=== PATIENT | male | born 1965 | race Caucasian/White ===

== ENCOUNTER 2023-11-19 17:02 | Emergency (ER) | payer OTHER, SELFPAY ==
--- NOTE | ~2023-11-19 | CT_ITS ---
EXAMINATION: CTA chest PE protocol DATE: 11/19/2023 19:27 INDICATION: Bleeding from tracheostomy. Cough. TECHNIQUE: Computed tomography angiography (CTA) of the chest was performed with 100 mL Omnipaque-350 intravenous contrast timed to evaluate the pulmonary arteries. Coronal maximum intensity projection 3D-reconstructions were created by the technologist. Automated exposure control and iterative reconst ruction technique were employed. The dose-length product was 350.91 mGy-cm. COMPARISON: None. FINDINGS: There is moderate emphysema. No pleural effusion. There is a tracheostomy tube in expected position. The heart size is normal. No pericardial effusion. There is no pulmonary embolus. There are peripelvic cysts in left kidney measuring up to 19 mm. There is mild thoracic spondylosis. IMPRESSION: 1. No pulmonary embolus. 2. Moderate emphysema. Reviewed, dictated and finalized at location E. ER CASING
--- NOTE | ~2023-11-19 | CT_ITS ---
EXAMINATION: CT soft tissue neck w con DATE: 11/19/2023 19:27 INDICATION: Bleeding from tracheostomy. Throat cancer. TECHNIQUE: Computed tomography (CT) of the neck was performed with 75 mL Omnipaque-350 intravenous co ntrast. Automated exposure control and iterative reconstruction technique were employed. The dose-lindsay gth product was 456.42 mGy-cm. COMPARISON: None FINDINGS: There is a tracheostomy tube in expected position. There is mucosal thickening and architec tural distortion of the larynx. There are no pathologically enlarged lymph nodes. There is 0% stenosi s of the proximal internal carotid arteries relative to normal distal artery lumen diameters. Right v ertebral artery is dominant. 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 There is minimal mucosal thickening in left maxillary sinus. The mastoid air cells are normal. There is moderate cervical spondylosis. IMPRESSION: 1. Mucosal thickening and architectural distortion involving the larynx, consistent with malignancy a nd/or changes of surgery and radiation therapy. 2. Total occlusion of left vertebral artery. Reviewed, dictated and finalized at location E. NUE INVESTIGATOR IMPRESSION: 1. Mucosal thickening and architectural distortion involving the larynx, consis tent with malignancy and/or changes of surgery and radiation therapy. 2. Total occlusion of left vertebral artery.
[2023-11-19 17:05] VITALS: BP 160/109; PULSE 118; RESP 16; TEMP 36.6; O2SAT 100
--- NOTE | 2023-11-19 18:41 | ED.GENADULT ---
HPI - General Adult General Chief complaint: Recheck/Abnormal Lab/Rx Stated complaint: bleeding from trach Time Seen by Provider: 11/19/23 17:22 Source: patient Mode of arrival: EMS Limitations: no limitations History of Present Illness HPI narrative: Patient is a 58-year-old male who presents to the ED via EMS with report of bleeding from his tracheostomy. Patient reports a history of throat cancer and subsequent tracheostomy. States he has chronic cough related to tracheostomy/secretions. Around 3:00 p.m. today, he began coughing izabela red blood out of his tracheostomy tube. Patient showed me a picture of this. He notes he did change his tracheostomy tube today, but states he did not have any pain or issues replacing the tracheostomy and has never had bleeding related to previous tubing changes before. Denies worsening shortness breath than usual. Denies recent illness, URI symptoms. Denies fevers. Denies chest pain. Patient is not on any anticoagulation. Denies previous hx of PE. Daughter at bedside reports patient is scheduled to undergo repeat PET scan tomorrow with Dr. Miguel Serna @ [facility] to see if throat mass has returned. Related Data Allergies Allergy/AdvReac Type Severity Reaction Status Date / Time No Known Allergies Allergy Verified 11/19/23 19:46 Review of Systems Review of Systems: CONSTITUTIONAL: Denies fever, chills, or sweats. ENT: Denies rhinorrhea, congestion, sore throat. CARDIOVASCULAR: See HPI. RESPIRATORY: See HPI. GASTROINTESTINAL: Denies abdominal pain, nausea, vomiting. All systems reviewed & are unremarkable except as noted in HPI and below [facility] Family History Family History Mother Hypertension Social History Social History Smoking status: Heavy tobacco smoker Alcohol intake: current Exam Narrative: GENERAL: Appears older than stated age, thin/frail, non-toxic, in no acute distress. HEAD: Normocephalic, atraumatic. NECK: Tracheostomy in place with stringy bloody secretions coming from stoma site. RESPIRATORY: Airway patent, respirations nonlabored. No significant focal lung sounds, LS decreased throughout. CARDIOVASCULAR: Tachycardic with regular rhythm. MUSCULOSKELETAL: Moves all extremities. No gross deformities. SKIN: Warm, dry, normal color. NEURO: A&O X3. Speech clear. PSYCHIATRIC: Appropriate mood and affect. Normal interaction. Course Vital Signs Vital signs: Vital Signs Temperature 98 F 11/19/23 17:05 Pulse Rate 118 H 11/19/23 17:05 Respiratory Rate 16 11/19/23 17:05 Blood Pressure 160/109 H 11/19/23 17:05 Pulse Oximetry 100 11/19/23 17:05 Oxygen Delivery Room Air 11/19/23 17:05 Temperature 98.0 F 11/19/23 19:50 Pulse Rate 84 11/19/23 23:00 Respiratory Rate 13 11/19/23 23:00 Blood Pressure 131/91 H 11/19/23 23:00 Pulse Oximetry 100 11/19/23 23:00 Oxygen Delivery Room Air 11/19/23 17:05 Medical Decision Making MDM Narrative Medical decision making narrative: Patient presented to ED with bleeding from tracheostomy. History of throat cancer. Patient hypertensive and tachycardic upon arrival. Afebrile. Bloody drainage noted from stoma site. Laboratory studies showing a white blood cell count of 9.5, mild anemia at 11.9, normocytic. No records to compare to. CMP fairly unremarkable. Creatinine 1.4. No records to compare to. Patient given fluids in the ED. Lactic acid resulted elevated 2.3. Again, fluids ongoing. Patient has been afebrile. No other infectious symptoms. EKG w/o ischemic changes. Trop negative. BNP WNL. CTA of chest w/o evidence for PE or other acute cardiopulmonary abnormality. Tracheostomy tube in expected position. CT soft tissue neck showing mucosal thickening and distortion of larynx, consistent with malignancy and/or changes of surgery. Patient's
[2023-11-19 19:12] LABS: Basophils Percent Auto 0.4 % (0.2-1.2); Eosinophils Percent Auto 0.3 % (0-4.4); Hematocrit 38.3 % (42.0-52.0); Hemoglobin 11.9 g/dL (14.0-18.0); Immature Granulocyte Absolute 0.03 K/mm3 (0.00-0.031); Immature Granulocyte Percent A 0.3 % (0-0.5); Lymphocytes Absolute Auto 0.84 K/mm3 (0.9-3.2); Lymphocytes Percent Auto 8.9 % (18.3-44.2); Mean Corpuscular HGB Conc 31.1 g/dl (32-36); Mean Corpuscular Hemoglobin 29.3 pg (26-34); Mean Corpuscular Volume 94.3 fl (80-100); Mean Platelet Volume 8.9 fl (7.4-10.4); Monocytes Absolute Auto 0.7 K/mm3 (0.1-0.6); Monocytes Percent Auto 7.8 % (2.6-8.5); Neutrophils Absolute Auto 7.8 K/mm3 (1.3-6.7); Neutrophils Percent Auto 82.3 % (45.5-73.1); Platelet Count Result 409 k/mm3 (150-375); Red Blood Count 4.06 M/mm3 (4.6-6.20); Red Cell Distribution Width 13.2 % (11.5-14.5); White Blood Count 9.5 K/mm3 (4.5-10.0)
[2023-11-19 19:19] LABS: Estimated CRCL calculation 39 ml/min; Estimated Glomerular Filt Rate 48
[2023-11-19 19:20] LABS: Lactic Acid Reflex 2.3 mmol/L (0.7-2.0)
--- NOTE | 2023-11-19 19:20 | ECG_ITS ---
Measurements Intervals [place] Rate: 93 P: 78 AL: 157 QRS: 68 QRSD: 94 T: 68 QT: 335 QTc: 418 Interpretive Statements SINUS RHYTHM NORMAL ECG NO PREVIOUS ECG AVAILABLE FOR COMPARISON Electronically Signed On 11-20-2023 16:18:40 [employer] UP OPERATOR VERTICAL by Rufino Lopez M.D.
[2023-11-19 19:23] LABS: Partial Thromboplastin Time 30.6 SECONDS (22.3-36.8)
[2023-11-19 19:30] LABS: Alanine Aminotransferase 16 U/L (6-50); Albumin Level 4.3 g/dL (3.5-5.1); Alkaline Phosphatase 114 U/L (38-126); Anion Gap 7 mmol/L (8-16); Aspartate Amino Transferase 23 U/L (17-59); Bilirubin,Total 0.5 mg/dL (0.2-1.3); Blood Urea Nitrogen 26 mg/dL (9-20); Calcium 10.1 mg/dL (8.4-10.2); Carbon Dioxide 30 mmol/L (22-30); Chloride 103 mmol/L (98-107); Estimated CRCL calculation 42 ml/min; Estimated Glomerular Filt Rate 52; Glucose 102 mg/dL (65-110); NT Pro B Type Natriuretic Pept 76 pg/mL (19.9-100); Potassium 4.6 mmol/L (3.4-5.0); Sodium 140 mmol/L (137-145)
[2023-11-19 19:42] LABS: Troponin I < 0.012 ng/mL (0.000-0.034)
[2023-11-19 19:44] VITALS: BP 135/96; PULSE 105; RESP 14; O2SAT 99
[2023-11-19 19:50] VITALS: BP 135/96; PULSE 93; RESP 12; TEMP 36.7; O2SAT 97
[2023-11-19] MEDS: WATER FOR IRRIGATION, STERILE 500 ML BOTTLE (19:54)
[2023-11-19] MEDS: SODIUM CHLORIDE 0.9% IV 1,000 ML 999 ML IV CONT (19:54)
[2023-11-19 20:27] VITALS: BP 138/89; PULSE 87; RESP 13; O2SAT 99
[2023-11-19 21:45] VITALS: BP 145/99; PULSE 73; RESP 9; O2SAT 99
[2023-11-19 22:09] LABS: Reflex Lactic Acid Yes or No Add Lactic
[2023-11-19 22:47] LABS: Lactic Acid 1.1 mmol/L (0.7-2.0)
[2023-11-19 23:00] VITALS: BP 131/91; PULSE 84; RESP 13; O2SAT 100
== END 2023-11-19 23:10 | disposition home or self-care (01) ==
PROVIDERS: Emergency Provider Physician Assistant
DX: J95.01 Hemorrhage from tracheostomy stoma (principal); C14.0 Malignant neoplasm of pharynx, unspecified; I65.02 Occlusion and stenosis of left vertebral artery; F17.200 Nicotine dependence, unspecified, uncomplicated
CPT/HCPCS: 36415; 70491; 71275; 80053; 83605; 83880; 84484; 85025; 85610; 85730; 86850; 86900; 86901; 93005; 96360; 99284; J7030; Q9967